=== PATIENT | male | born 1995 | race Caucasian/White ===

== ENCOUNTER 2022-04-15 19:46 | Emergency (ER) | payer MEDICAID ==
[~2022-04-15] VITALS: Ht 182.9 cm; Wt 131.5 kg
[2022-04-15 20:14] VITALS: BP_SYST 159
--- NOTE | 2022-04-15 20:21 | NUR ---
Patient triaged and placed in waiting room. VSS and patient appears in no acute distress at this time. Accompanied by MOTHER, awaiting available bed, and MD Yun notified of need for MSE.
--- NOTE | 2022-04-15 20:22 | NUR ---
COVID/INFLUENZA SWAB COLLECTED AND SENT TO LAB.
--- NOTE | 2022-04-15 21:56 | NUR ---
MD Mastersonaw examining pt in triage rm.
[2022-04-15] MEDS ORDERED: ALBMDI INH (22:13)
[2022-04-15] MEDS ORDERED: ALBU2.5V7 INH (22:13)
[2022-04-15] MEDS ORDERED: PRED20TA PO (22:13)
[2022-04-15] MEDS ORDERED: predniSONE 20 MG TABLET PO ONE (22:15)
--- NOTE | 2022-04-15 22:25 | NUR ---
Patient given written and verbal discharge instructions and verbalizes understanding. ER MD Macedo discussed with patient the results and treatment provided. Patient in stable condition. ID arm band removed. IV catheter removed intact and dressing applied, no active bleeding. Rx of Albuterol and prednisone sent to preferred pharmacy. Opportunity for questions provided and answered. Medication side effect fact sheet provided.
[2022-04-15 22:34] VITALS: BP_SYST 132
== END 2022-04-15 22:25 | disposition home or self-care (01) ==
LOC: SED 19:46
DX: J45.909 Unspecified asthma, uncomplicated (principal); R05.9 Cough, unspecified; R07.89 Other chest pain; Z79.899 Other long term (current) drug therapy; Z20.822 Contact with and (suspected) exposure to COVID-19
CPT/HCPCS: 99284; 71045; 87426; 36415; 87804 ×2; J7512

== ENCOUNTER 2023-04-17 16:01 | Emergency (ER) | payer MEDICAID ==
[~2023-04-17] VITALS: Ht 185.4 cm; Wt 140.6 kg
[~2023-04-17 16:01] MED LIST: ALBMDI INH; ALBU2.5V7 INH; PRED20TA PO
[2023-04-17 16:39] VITALS: BP_SYST 135; PULSE 93; RESP 19; TEMP 98.1; O2SAT 96
[2023-04-17] MEDS ORDERED: ONDANSETRON 4 MG ODT TAB PO ONE (16:45)
[2023-04-17 17:38] LABS: BILIRUBIN,URINE NEGATIVE (NEGATIVE); BLOOD, URINE NEGATIVE (NEGATIVE); CLARITY/URINE CLEAR (CLEAR); COLOR,URINE YELLOW (YELLOW); GLUCOSE,URINE 3+ (NEGATIVE); KETONES,URINE 2+ (NEGATIVE); LEUKOCYTE ESTERASE ,URINE NEGATIVE (NEGATIVE); NITRITE, URINE NEGATIVE (NEGATIVE); PROTEIN URINE NEGATIVE (NEGATIVE); UROBILINOGEN,URINE 0.2 (0.2-1.0)
[2023-04-17 17:45] LABS: BACTERIA,URINE None Seen /HPF (None Seen); CALCIUM OXALATE CRYSTALS,UR None Seen /HPF (None Seen); CALCIUM PHOSPHATE CRYSTALS,UR None Seen /HPF (None Seen); COARSE GRANULAR CASTS,URINE None Seen /LPF (None Seen); FINE GRANULAR CASTS,URINE None Seen /LPF (None Seen); HYALINE CASTS, URINE None Seen /LPF (None Seen); MUCUS,URINE None Seen /LPF (None Seen); OTHER CASTS, URINE None Seen /LPF (None Seen); OTHER CRYSTALS,URINE None Seen /HPF (None Seen); RBC,URINE NONE SEEN /HPF (0-3); TRICHOMONAS,URINE None Seen /HPF (None Seen); TRIPLE PHOSPHATE CRYSTAL,UR None Seen /HPF (None Seen); URIC ACID CRYSTALS,URINE None Seen /HPF (None Seen); URINE AMORPHOUS PHOSPHATES None Seen /HPF (None Seen); URINE AMORPHOUS URATE None Seen /HPF (None Seen); WAXY CASTS,URINE None Seen /LPF (None Seen); WBC,URINE NONE SEEN /HPF (0-3); YEAST,URINE None Seen /HPF (None Seen)
[2023-04-17 18:30] LABS: BASOPHILS # (AUTO) 0.1 K/uL (0.0-0.2); BASOPHILS % (AUTO) 0.7 % (0.0-2.0); EOSINOPHILS # (AUTO) 0.2 K/uL (0.0-0.4); EOSINOPHILS % (AUTO) 1.6 % (0.0-4.0); HEMATOCRIT 50.1 % (36-54); HEMOGLOBIN 17.4 g/dL (14.0-18.0); LYMPHOCYTES # (AUTO) 2.5 K/uL (1.0-5.5); LYMPHOCYTES % (AUTO) 19.8 % (20.5-51.5); MEAN CORPUSCULAR HEMOGLOBIN 31 pg (27-31); MEAN CORPUSCULAR HGB CONC 35 % (32-36); MEAN CORPUSCULAR VOLUME 88 fL (79.0-98.0); MONOCYTES # (AUTO) 0.6 K/uL (0.0-1.0); MONOCYTES % (AUTO) 5.1 % (1.7-9.3); NEUTROPHILS % (AUTO) 72.8 % (40.0-70.0); PLATELET COUNT (AUTO) 284 K/uL (130-430); RED BLOOD CELL COUNT(AUTO) 5.72 MIL/uL (4.2-6.2); WHITE BLOOD COUNT (AUTO) 12.4 K/uL (4.8-10.8)
[2023-04-17 18:37] LABS: ACETONE, SERUM NEGATIVE (NEGATIVE)
[2023-04-17 18:52] LABS: ALANINE AMINOTRANSFERASE 54 U/L (12-78); ALBUMIN 3.9 g/dL (3.4-4.8); AMYLASE 44 U/L (0-100); ANION GAP 11 (5-15); ASPARTATE AMINOTRANSFERASE 20 U/L (10-37); BILIRUBIN,DIRECT 0.2 mg/dL (0.0-0.3); CALCIUM 8.5 mg/dL (8.4-11.0); CARBON DIOXIDE 26 mmol/L (23-29); CHLORIDE 92 mmol/L (98-107); CREATININE 1.05 mg/dL (0.55-1.30); GFR AFRICAN AMERICAN 111 mL/min (>90); GFR NON AFRICAN-AMERICAN 91 mL/min (>90); LIPASE 106 U/L (16-77); POTASSIUM 4.1 mmol/L (3.5-5.1); SODIUM SERUM 129 mmol/L (136-145); TOTAL BILIRUBIN 1.2 mg/dL (0.0-1.0); TOTAL PROTEIN, SERUM 7.7 g/dL (6.4-8.3); UREA NITROGEN, BLOOD 10 mg/dL (8-21)
[2023-04-17 18:56] LABS: GLUCOSE 523 mg/dL (74-106)
[2023-04-17] MEDS ORDERED: METF-834 PO (19:27)
[2023-04-17] MEDS ORDERED: NACL 0.9% 1,000 ML IV ONE ×2 (19:30→21:45)
[2023-04-17] MEDS ORDERED: INSULIN REGULAR, HUMAN 10 UNITS/0.1 ML, 3 ML VIAL IVP ONE ×4 (19:30→23:30)
[2023-04-17 19:40] VITALS: BP_SYST 135; PULSE 93; RESP 19; TEMP 98.1; O2SAT 96
== END 2023-04-18 00:18 | disposition home or self-care (01) ==
LOC: SED 16:01
DX: R73.9 Hyperglycemia, unspecified (principal); R11.0 Nausea; R35.0 Frequency of micturition; J45.909 Unspecified asthma, uncomplicated; Z79.899 Other long term (current) drug therapy
CPT/HCPCS: 99285; 74176; 96374; 96361; 80076; 80048; 81001; 82009; 82150; 83690; 85025; 36415; 76376; 96376; 82948; 83605; 81000; 81015; J7030; J1815